=== PATIENT | male | born 1995 ===

== ENCOUNTER 2017-03-20 10:25 | Emergency (ER) | payer SELFPAY ==
[2017-03-20 10:38] VITALS: BMI 26.6
[2017-03-20 10:40] VITALS: TEMP 98.9; O2SAT 98
--- NOTE | 2017-03-20 11:15 | C.PDOC ---
History Of Present Illness 21 y/o male presents to the ED with complaints of sore throat, fever and painful swallowing since yesterday. Denies difficulty breathing, cough, neck pain or any other complaints. Last took tylenol at 0400 today. Time Seen by Provider: 03/20/17 10:59 Chief Complaint (Nursing): Headache History Per: Patient, Family History/Exam Limitations: no limitations Onset/Duration Of Symptoms: Hrs Current Symptoms Are (Timing): Still Present Severity: Mild Recent travel outside of the [place]: No Past Medical History Reviewed: Historical Data, Nursing Documentation, Vital Signs Vital Signs: Last Vital Signs Temp 98.9 F 03/20/17 10:39 Pulse 72 03/20/17 12:01 Resp 18 03/20/17 12:01 BP 124/72 03/20/17 12:01 Pulse Ox 98 03/20/17 12:01 Family History: States: Unknown Family Hx - Social History Hx Alcohol Use: Yes Hx Substance Use: No - Immunization History Hx Tetanus Toxoid Vaccination: Yes Hx Influenza Vaccination: Yes Hx Pneumococcal Vaccination: Yes Review Of Systems Except As Marked, All Systems Reviewed And Found Negative. Constitutional: Positive for: Fever ENT: Positive for: Throat Pain Respiratory: Negative for: Cough, Shortness of Breath Musculoskeletal: Negative for: Neck Pain Physical Exam - Physical Exam Appears: Non-toxic, No Acute Distress Skin: Warm, Dry, No Rash Head: Atraumatic, Normacephalic Eye(s): bilateral: Normal Inspection, PERRL, EOMI Ear(s): Bilateral: Normal Nose: Normal Oral Mucosa: Moist Throat: Erythema, Other (tonsillar swelling) Neck: Normal, Normal ROM, Supple Lymphatic: Adenopathy (submandibular) Chest: Symmetrical Cardiovascular: Rhythm Regular, No Murmur Respiratory: Normal Breath Sounds, No Rales, No Rhonchi, No Wheezing Neurological/Psych: Oriented x3, Normal Speech (speakin in full sentences) ED Course And Treatment O2 Sat by Pulse Oximetry: 98 (room air) Pulse Ox Interpretation: Normal Progress Note: Instructed symptomatic treatment and follow up with the clinic in 1-2 days. Instructed to return to ER if symptoms persist or worsen. Disposition - Disposition Referrals: [facility] [Outside] Disposition: HOME/ ROUTINE Disposition Time: 11:13 Condition: STABLE Additional Instructions: Ruthy lang o la clnica en 1-3 esteves sin falta, para mas evaluacin. [place] los medicamentos cassandra indicado. Volver a la claudio de emergencia en cualquier momento si los sntomas persisten o empeoran. Prescriptions: Amoxicillin 875 mg PO BID #14 tablet Ibuprofen [Motrin] 600 mg PO Q6 PRN #20 tab PRN Reason: Pain, Mild (1-3) Mag&Al/Simet/Diphen/Lido [First Magic Mouthwash] 5 ml MM Q6 #1 kit Instructions: Tonsillitis (ED) Forms: Work Excuse - Clinical Impression Clinical Impression: Tonsillitis - PA / [employer] PERSON / Resident Statement MD/DO has reviewed & agrees with the documentation as recorded. - Scribe Statement The provider has reviewed the documentation as recorded by the Scribjorge alberto Godinez All medical record entries made by the Scribe were at my direction and personally dictated by me. I have reviewed the chart and agree that the record accurately reflects my personal performance of the history, physical exam, medical decision making, and the department course for this patient. I have also personally directed, reviewed, and agree with the discharge instructions and disposition.
[2017-03-20 12:01] VITALS: BP 124/72; PULSE 72; RESP 18
== END 2017-03-20 12:02 | disposition home or self-care (01) ==
LOC: C.ER 10:25
DX: J03.90 Acute tonsillitis, unspecified (principal)

== ENCOUNTER 2017-12-17 11:18 | Emergency (ER) | payer SELFPAY ==
[2017-12-17 11:18] VITALS: BMI 26.6
[2017-12-17 11:26] VITALS: BP 119/80
[2017-12-17 12:42] LABS: URINE BILIRUBIN NEGATIVE (NEGATIVE); URINE BLOOD 1+ (NEGATIVE); URINE CLARITY Clear (Clear); URINE COLOR Yellow (YELLOW); URINE GLUCOSE (UA) NORMAL (Normal); URINE LEUKOCYTE ESTERASE NEG Leu/uL (Negative); URINE PROTEIN NEGATIVE (NEGATIVE)
[2017-12-17] MEDS ORDERED: Sodium Chloride 0.9% 1,000 ML IV STA (12:54)
[2017-12-17] MEDS ORDERED: Sodium Chloride 0.9% 1,000 ML ONE (13:16)
[2017-12-17 13:36] LABS: BASO % 0.7 % (0.0-2.0); EOS % 0.6 % (0.0-4.0); HEMOGLOBIN 15.5 g/dL (12.0-18.0); LYMPH # 1.3 K/uL (1.0-4.3); LYMPH % 21.3 % (20.0-40.0); MEAN CELL VOLUME 77.6 fL (80.0-94.0); MEAN CORPUSCULAR HEMOGLOBIN 25.9 pg (27.0-31.0); MEAN CORPUSCULAR HGB CONC 33.4 g/dL (33.0-37.0); MEAN PLATELET VOLUME 7.3 fL (7.2-11.7); MONO % 15.9 % (0.0-10.0); NEUT # 3.7 K/uL (1.8-7.0); NEUT % 61.5 % (50.0-75.0); RBC 5.99 Mil/uL (4.40-5.90); RED CELL DISTRIBUTION WIDTH 14.9 % (11.5-14.5)
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
[2017-12-17 13:50] LABS: ALB/GLOB RATIO 1.1 (1.0-2.1); ALBUMIN 4.5 g/dL (3.5-5.0); ALT/SGPT 72 U/L (21-72); AST/SGOT 38 U/L (17-59); BLOOD UREA NITROGEN 9 mg/dL (9-20); CALCIUM 9.5 mg/dl (8.6-10.4); GFR AFRICAN-AMERICAN > 60; GFR NON-AFRICAN AMERICAN > 60
--- NOTE | 2017-12-17 15:17 | CT ---
CT abdomen and pelvis History: Abdominal pain. Microhematuria. Comparison: None available. Technique: Multiple contiguous axial images were performed through the abdomen and pelvis without the use of intravenous contrast. Subsequently, sagittal and coronal reformatted images were obtained. This CT exam was performed using one or more of the following dose reduction techniques: Automated exposure control, adjustment of the mA and/or kV according to patient size, and/or use of iterative reconstruction technique. Findings: Lung bases are clear. No pleural or pericardial effusion. Prominent liver with diffuse fatty infiltration. Relative areas of increased attenuation which may represent some focal fatty sparing seen scattered throughout the liver most predominantly noted within the caudate and left hepatic lobes. This may be better evaluated multiphasic CT if clinically indicated. Somewhat contracted gallbladder limiting evaluation. Splenules. Adrenal glands are preserved. Mild fatty atrophy of the pancreas. Upper abdominal bowel is preserved. Right kidney: No calculi or hydronephrosis. Left Kidney: No calculi or hydronephrosis. Underdistended urinary bladder, limiting evaluation. Prostate and seminal vesicles appear grossly preserved. Mild fecal retention in the colon. Under distended descending colon. Motion artifact limits evaluation of the ascending colon. Appendix is grossly preserved. Few shotty para-aortic and inguinal lymph nodes. Few shotty mesenteric lymph nodes. Mild degenerative changes in visualized osseous structures. Impression: 1. Prominent liver with diffuse fatty infiltration. Relative areas of increased attenuation which may represent some focal fatty sparing seen scattered throughout the liver most predominantly noted within the caudate and left hepatic lobes. This may be better evaluated multiphasic CT if clinically indicated. 2. Somewhat contracted gallbladder limiting evaluation. 3. Splenules. 4. Mild fatty atrophy of the pancreas. 5. Underdistended urinary bladder, limiting evaluation. 6. Mild fecal retention in the colon. Under distended descending colon. Motion artifact limits evaluation of the ascending colon. 7. Few shotty para-aortic and inguinal lymph nodes. Few shotty mesenteric lymph nodes. 8. Mild degenerative changes in visualized osseous structures. If hematuria persists, consider further evaluation with a hematuria protocol contrast-enhanced CT.
[2017-12-17 16:26] VITALS: PULSE 86; RESP 18; TEMP 98.2
--- NOTE | 2017-12-17 17:27 | RAD ---
Chest x-ray two views History: Fever. Back pain. Comparison: None available. Findings: Mild patchy increased markings at the left lung base. Clinical correlation. Mild venous congestion. Right hilar prominence. Tortuous aorta. Heart size within normal limits. Impression: Mild patchy increased markings at the left lung base. Clinical correlation. Mild venous congestion. Right hilar prominence. Tortuous aorta.
[2017-12-17 19:04] VITALS: O2SAT 98
== END 2017-12-17 16:31 | disposition home or self-care (01) ==
LOC: C.ER 11:18
DX: B34.9 Viral infection, unspecified (principal); R31.29 Other microscopic hematuria
CPT/HCPCS: 71046; 74176; 80053; 81001; 82550; 85025; 96360; 99285; J7040

== ENCOUNTER 2018-03-15 09:40 | Emergency (ER) | payer OTHER ==
[2018-03-15 09:40] VITALS: BMI 26.6
[2018-03-15] MEDS ORDERED: Dexamethasone 4 mg/1 ml IM STA (10:26)
[2018-03-15] MEDS ORDERED: Naproxen 550 mg Tab PO STA (10:26)
[2018-03-15] MEDS ORDERED: Naproxen 550 mg Tab PO ONE (10:30)
--- NOTE | 2018-03-15 11:34 | C.PDOC ---
History Of Present Illness 22 yo male comes to ER with complaints of sore throat, bodyaches, fever, chills , and headache since yesterday. He denies any cough, abdominal pain, nausea, vomiting, diarrhea, or dysuria. He also denies any known sick contacts. Time Seen by Provider: 03/15/18 09:49 Chief Complaint (Nursing): ENT Problem History Per: Patient History/Exam Limitations: no limitations Onset/Duration Of Symptoms: Days Current Symptoms Are (Timing): Still Present Location Of Pain: Throat, Diffuse Myalgias, Headache Sick Contacts (Context): None Associated Symptoms: Fever, Chills, Sore Throat, Myalgias. denies: Nausea, Vomiting, Diarrhea Ear Symptoms: Bilateral: None Severity: Moderate Additional History Per: Patient Past Medical History Reviewed: Historical Data, Nursing Documentation, Vital Signs Vital Signs: Last Vital Signs Temp 98.3 F 03/15/18 12:03 Pulse 90 03/15/18 12:03 Resp 18 03/15/18 12:03 BP 126/77 03/15/18 12:03 Pulse Ox 97 03/15/18 12:03 - Medical History PMH: No Chronic Diseases Surgical History: No Surg Hx Family History: States: No Known Family Hx - Social History Hx Alcohol Use: Yes Hx Substance Use: No - Immunization History Hx Tetanus Toxoid Vaccination: No Hx Influenza Vaccination: No Hx Pneumococcal Vaccination: No Review Of Systems Constitutional: Positive for: Fever, Chills, Malaise (bodyaches) ENT: Positive for: Throat Pain Cardiovascular: Negative for: Chest Pain, Palpitations Respiratory: Negative for: Cough, Shortness of Breath Gastrointestinal: Negative for: Nausea, Vomiting, Abdominal Pain, Diarrhea Genitourinary: Negative for: Dysuria Neurological: Positive for: Headache Physical Exam - Physical Exam Appears: Well, Non-toxic, No Acute Distress Skin: Warm, Dry Head: Normacephalic Eye(s): bilateral: Normal Inspection Ear(s): Bilateral: Normal Nose: Normal, No Flaring, No Discharge Oral Mucosa: Moist, Other (Uvula appears mildly swollen) Throat: Erythema (erythema to posterior ooropharynx), No Exudate, No Drooling Neck: Supple Cardiovascular: Rhythm Regular Respiratory: Normal Breath Sounds, No Rales, No Rhonchi, No Wheezing Gastrointestinal/Abdominal: Normal Exam, Bowel Sounds, Soft, No Tenderness Neurological/Psych: Oriented x3 ED Course And Treatment O2 Sat by Pulse Oximetry: 98 (RA) Pulse Ox Interpretation: Normal Progress Note: Patient given Naproxen 550mg PO for pain relief and Decadron 10mg IM. Reevaluation Time: 11:50 Reassessment Condition: Improved (Patient reassessed, is resting comfortably and states he feels better. He is speaking in full sentences, without drooling , and has normal vitals. He was given rxs for Naprosyn and Chloraseptic spray, and instructed to drink plenty of fluids and follow up with PMD/clinic in 1-2 days. He understands he should return to ED if symptoms worsen.) Disposition Counseled Patient/Family Regarding: Studies Performed, Diagnosis, Need For Followup, Rx Given - Disposition Referrals: [facility] [Outside] Disposition: HOME/ ROUTINE Disposition Time: 11:50 Condition: STABLE Additional Instructions: SEGUIMIENTO CON ROBISON MDICO / CLNICA EN 1-2 [place] USE MEDICAMENTOS SEGN SE INDICA BEBER MUCHO LQUIDO REGRESE AL EITAN DE EMERGENCIA SI LOS SNTOMAS EMPEORAN FOLLOW UP WITH YOUR DOCTOR/CLINIC IN 1-2 DAYS USE MEDICATION DIRECTED DRINK PLENTY OF FLUIDS RETURN TO EMERGENCY ROOM IF SYMPTOMS WORSEN Prescriptions: Naproxen 375 mg PO BID PRN #20 tablet PRN Reason: pain Phenol/Glycerin [Chloraseptic [place]] 1 spray MM Q6 PRN #1 spray PRN Reason: THROAT PAIN Instructions: Viral Syndrome (DC) Forms: [employer] (Spanish) Print Language: SOUTH AFRICAN - Clinical Impression Clinical Impression: Uvulitis, Viral syndrome - Scribe Statement The provider has reviewed the documentation as recorded by the Scribe (Tiffany Bobby) Provider Attestation: All medical record entries made by the Scribe were at my direction and personally dictated by me. I have reviewed the chart and agree that the record accurately reflects my personal performance of the history, physical exam, medical decision making, and the department course for this patient. I have also personally directed, reviewed, and agree with the discharge instructions and disposition.
[2018-03-15 12:04] VITALS: BP 126/77; PULSE 90; RESP 18; TEMP 98.3
[2018-03-17 09:02] VITALS: O2SAT 98
== END 2018-03-15 12:06 | disposition home or self-care (01) ==
LOC: C.ER 09:40
DX: K12.2 Cellulitis and abscess of mouth (principal); B34.9 Viral infection, unspecified
CPT/HCPCS: 96372; 99283; J1100